=== PATIENT | male | born 1965 | race Caucasian/White ===

== ENCOUNTER 2019-12-13 09:14 | Outpatient (CLI) | payer OTHER ==
[2019-12-13] MEDS ORDERED: Iopamidol 370 76% 100 ML VIAL ONE (09:37)
--- NOTE | 2019-12-13 10:01 | CT ---
Exam: Chest CT with contrast HISTORY: Right renal mass. Comparison none FINDINGS: Mediastinum: No mass, lymphadenopathy or hematoma. HEART: Normal heart size. No significant pericardial fluid. Aorta: Normal caliber. No periaortic fat stranding Upper abdomen: Redemonstration of a right renal mass. Visualized IVC appears to be patent. Hypoattenu ation liver due to hepatic steatosis. Trachea and central bronchi are patent Pleural spaces: No effusion Pneumothorax: None Right lung: Noncalcified solid nodule in the right upper lobe measures 0.4 cm. No additional nodules in the right lung. Left lung: No suspicious masses, consolidation or nodules Osseous structures: No lytic or blastic lesions IMPRESSION: 1. Redemonstration of a right renal mass, incompletely evaluated 2. Solitary solid nodule in the right upper lobe measuring 0.4 cm. Lesion is too small to further salima racterize. A noncalcified granuloma is favored. Metastatic lesion cannot be entirely excluded. Comparison with prior CT if available would be beneficial.
--- NOTE | 2019-12-13 14:13 | NM ---
Exam: Nuclear medicine whole body bone scan HISTORY: Right kidney neoplasm of uncertain etiology and behavior COMPARISON: None TECHNIQUE: Patient was administered 31.70 mCi of technetium 99m MDP intravenously. After appropriate delay, whole body imaging was performed. FINDINGS: Physiologic distribution of radiotracer. Uptake in bilateral shoulders felt to be due to de generative change. There is also evidence of degenerative change in both knees. Initial images demonstrate contamination projecting over the perineum. Subsequent images demonstrate resolution of this examination. No scintigraphic evidence of osseous metastases in the appendicular or axial skeleton. There is focal uptake in the anterior right calvarium, very subtle. IMPRESSION: 1. Subtle uptake in the right frontal calvarium. Correlate with head CT.
== END 2019-12-13 09:15 | disposition home or self-care (01) ==
LOC: CT 09:14
PROVIDERS: ATTEND Urology
DX: D41.01 Neoplasm of uncertain behavior of right kidney (principal); R91.1 Solitary pulmonary nodule; N28.89 Other specified disorders of kidney and ureter
CPT/HCPCS: 71260; 78306; A9503

== ENCOUNTER 2019-12-17 06:10 | Outpatient (CLI) | payer OTHER ==
--- NOTE | 2019-12-20 14:26 | EKG ---
Test Reason : Blood Pressure : / mmHG Vent. Rate : 071 BPM Atrial Rate : 071 BPM P-R Int : 132 ms QRS Dur : 092 ms QT Int : 384 ms P-R-T Axes : 009 016 028 degrees QTc Int : 417 ms Normal sinus rhythm Normal ECG No previous ECGs available Confirmed by OBINNA JAVED (2) on 12/20/2019 2:26:14 PM Referred By: ABDULLAHI Confirmed By:OBINNA JAVED
== END 2019-12-17 06:11 | disposition home or self-care (01) ==
LOC: LABBT 06:10
PROVIDERS: ATTEND Urology
DX: Z01.810 Encounter for preprocedural cardiovascular examination (principal); N28.89 Other specified disorders of kidney and ureter
CPT/HCPCS: 93005; 93010

== ENCOUNTER 2019-12-17 09:30 | Inpatient (IN) | payer OTHER ==
[2019-12-14 13:07] VITALS: BMI 32.5
[2019-12-18 12:16] LABS: SARS-CoV-2 MS2 Positive; SARS-CoV-2 N Gene Negative; SARS-CoV-2 S Gene Negative; SARS-CoV-2 orf1ab Negative
[2019-12-21] MEDS ORDERED: Fentanyl 100 MCG/2 ML VIAL ONE ×3 (06:18→10:23)
[2019-12-21] MEDS ORDERED: Midazolam HCl 2 mg/2 ml Vial ONE ×2 (06:18→06:30)
[2019-12-21] MEDS ORDERED: HYDROmorphone 2 MG/ML VIAL ONE (06:30)
[2019-12-21] MEDS ORDERED: Scopolamine 1.5 mg/72 hour Patch ONE (06:58)
[2019-12-21] MEDS ORDERED: Famotidine/PF 20 mg/2ml Vial ONE (07:34)
[2019-12-21] MEDS ORDERED: Ropivacaine 0.2% HCl/PF 20 ML ONE (07:36)
[2019-12-21] MEDS ORDERED: Ondansetron PF 4 MG/2 ML Vial IVP PRN (07:45)
[2019-12-21] MEDS ORDERED: Zolpidem Tartrate 5 MG TAB PO PRN ×2 (07:45→11:53)
[2019-12-21] MEDS ORDERED: Promethazine HCl 25 MG/ML VIAL IM PRN (07:45)
[2019-12-21] MEDS ORDERED: diphenhydrAMINE 50 MG/ML VIAL IVP PRN (07:45)
[2019-12-21] MEDS ORDERED: Bupivacaine 0.25% 10 ML VIAL EPIDURAL PRN (07:45)
[2019-12-21] MEDS ORDERED: Promethazine HCl 25 MG SUPP PR PRN (07:45)
[2019-12-21] MEDS ORDERED: Hydrocerin (Eucerin) Cream 120 gm Jar TOP PRN (07:45)
[2019-12-21] MEDS ORDERED: diphenhydrAMINE 25 MG CAP PO PRN (07:45)
[2019-12-21] MEDS ORDERED: Naloxone HCl 0.4 mg/ml Vial IVP PRN (07:45)
[2019-12-21] MEDS ORDERED: diphenhydrAMINE 50 MG/ML VIAL IM PRN (07:45)
[2019-12-21] MEDS ORDERED: SUGAMMADEX SODIUM 200 MG/2 ML VIAL ONE (09:01)
--- NOTE | 2019-12-21 09:49 | OP ---
DATE OF PROCEDURE: 12/21/2019 SUPPLY CHAIN ASSISTANT SURGEON: Noemy. PREOPERATIVE DIAGNOSIS: Right renal mass. POSTOPERATIVE DIAGNOSIS: Right renal mass. PROCEDURE PERFORMED: Right radical nephrectomy. ANESTHESIA: General, epidural. BLOOD LOSS: 150. SPECIMEN: Right kidney. COMPLICATIONS: None. DESCRIPTION OF PROCEDURE: After informed consent, the patient was taken to the operating room, transferred to the table under his own power. Anesthesia was established. A time-out was performed, showing the correct patient, site, and procedure. Preoperative images were reviewed. Preoperative antibiotics were administered. He was prepped and draped in the supine position with the bed slightly flexed. I began by making a right anterior subcostal incision about 2 fingerbreadths below the bottom rib. This was carried from midline out laterally. Incision was first made with a 10 blade and then carried down to fascia with electrocautery. Peritoneum was carefully entered and opened for width of the incision. The colon was deflected medially, and then the duodenum was carefully Kocherized using Metzenbaum scissors. I was able to dissect the lower pole of the kidney and doubly ligated the gonadal and ureter and transected between. The posterior plane was bluntly developed. I then carried the dissection bluntly up to the renal hilum. The IVC was dissected anteriorly and carried up to the renal vein. I was unable to pass my fingers around both the renal vein and artery. These were controlled with a vascular staple load. The superior medial attachments through the adrenal gland were then taken down with another vascular load. Electrocautery was used to transect the Gerota's attachments of the superior pole until the kidney was freed. The kidney was then delivered off the operative field. The renal fossa was then irrigated, noting no active bleeding. Upon further inspection, there was slight oozing from the adrenal bed, which was packed with Gel-Foam. The Bookwalter was then taken down. The colon was replaced, and omentum was placed over top. The incision was closed in 2 layers with 0 PDS suture. Subcutaneous tissues were then copiously irrigated, and skin was closed with ruba before being dressed with a bordered gauze dressing. Final counts were correct. The patient was then awoken from anesthesia, transferred back to his hospital bed and taken to PACU in stable condition, where he will be admitted to the floor. Job ID: [id number]
[2019-12-21] MEDS ORDERED: D5 1/2 NS w/20 mEq KCL 1,000 ML ONE (10:21)
[2019-12-21] MEDS ORDERED: hydrALAZINE 20 MG/ML VIAL SLOW IVP PRN (11:53)
[2019-12-21] MEDS ORDERED: Ondansetron PF 4 MG/2 ML Vial ONE (12:26)
[2019-12-21] MEDS ORDERED: Rocuronium Bromide 10 MG/ML (10ML VIAL) ONE (12:26)
[2019-12-21] MEDS ORDERED: PROPOFOL 200 MG/20 ML VIAL ONE (12:26)
[2019-12-21] MEDS ORDERED: Lidocaine 1% PF 5 ML VIAL ONE (12:26)
[2019-12-21] MEDS ORDERED: Lidocaine 1.5% w/Epi 1:200K 30 ML VIAL (Epid Use) ONE (12:26)
[2019-12-21] MEDS ORDERED: Succinylcholine Chloride 20 MG/ML 10 ml SYRINGE FS ONE (12:26)
[2019-12-21] MEDS: D5 1/2 NS w/20 mEq KCL 1,000 ML IV SCH ×2 (19:56→20:16)
[2019-12-21] MEDS: Docusate 100 MG CAP PO SCH (20:15)
[2019-12-22] MEDS: fentaNYL Citrate/PF 500 MCG, Bupivacaine 10 ML in Sodium Chloride 0.9% 80 ML EPIDURAL SCH ×2 (00:09→13:02)
[2019-12-22] MEDS: D5 1/2 NS w/20 mEq KCL 1,000 ML IV SCH ×2 (05:20→15:21)
[2019-12-22 06:15] LABS: #Eosinphils 0.1 thou/uL (0.0-0.7); #Lymphocytes 1.5 thou/uL (1.20-3.40); #Monocytes 0.7 thou/uL (0.11-0.59); #Neutrophils 6.5 thou/uL (1.40-6.50); %Basophils 0.2 % (0.0-1.0); %Eosinophils 1.1 % (0.0-10.0); %Lymphocytes 16.6 % (21.0-51.0); %Monocytes 7.9 % (0.0-10.0); %Neutrophils 74.2 % (42.0-75.0); Hemoglobin 11.2 g/dL (14.0-18.0); Mean Corpuscular HGB CONC 33.1 g/dL (32.0-36.0); Mean Corpuscular Hemoglobin 29.8 pg (27.0-31.0); Mean Platelet Volume 7.6 fL (7.4-10.4); Platelet Count 280 thou/uL (130-400); RBC Distribution Width 12.9 % (11.5-14.5); Red Blood Cell (RBC) Count 3.76 mill/uL (4.70-6.10); White Blood Cell (WBC) Count 8.8 thou/uL (4.8-10.8)
[2019-12-22] MEDS ORDERED: traMADol HCl 50 MG TAB PO PRN ×2 (08:25→08:26)
[2019-12-22] MEDS ORDERED: Acetaminophen 500 MG TAB PO SCH (08:30)
[2019-12-22] MEDS: Docusate 100 MG CAP PO SCH ×2 (08:51→19:54)
[2019-12-22] MEDS ORDERED: Enoxaparin Sodium 40 MG/0.4 ML SYRINGE SC SCH (09:00)
[2019-12-22 09:20] LABS: Anion Gap 11 mmol/L (10-20); BUN (Urea Nitrogen) 12 mg/dL (8.4-25.7); Calc. Creatinine Clearance 60 mL/min (70-130); Calcium 8.7 mg/dL (7.8-10.44); Carbon Dioxide 25 mmol/L (22-29); Chloride 102 mmol/L (98-107); Estimated GFR-MDRD 43; Glucose 96 mg/dL (70-105); Potassium 4.3 mmol/L (3.5-5.1); Sodium 134 mmol/L (136-145)
--- NOTE | 2019-12-22 09:37 | PRG ---
DATE OF SERVICE: 12/22/2019 SUBJECTIVE: No issues overnight. Pain well controlled with epidural. He denies nausea, fevers, chest pain, or difficulty breathing. OBJECTIVE: VITAL SIGNS: Temperature this morning just over 100. Otherwise, vitals stable. Good urine output. GENERAL: No acute distress, conversant. LUNGS: Unlabored breathing. Symmetric chest expansion. HEART: Regular rate and rhythm. ABDOMEN: Soft, appropriately tender, and nondistended. Dressing in place, not soiled. SKIN: Warm and dry. No peripheral edema. GENITOURINARY: Hardin catheter draining clear urine. LABORATORY DATA: Hemoglobin 11. BMP still pending. ASSESSMENT AND PLAN: Postoperative day #1, right radical nephrectomy for 10 cm right renal mass. Routine postop care: Out of bed to chair and ambulate; continue diet; continue epidural until tomorrow morning; deep venous thrombosis prophylaxis this morning, which will be held tomorrow before epidural removal; gastrointestinal prophylaxis; SCDs; and incentive spirometry. Discharge anticipated tomorrow or Friday depending on clinical course. Job ID: [id number]
[2019-12-22] MEDS: Acetaminophen 500 MG TAB PO PRN (21:00)
[2019-12-23] MEDS: fentaNYL Citrate/PF 500 MCG, Bupivacaine 10 ML in Sodium Chloride 0.9% 80 ML EPIDURAL SCH (01:15)
[2019-12-23 05:49] LABS: #Eosinphils 0.2 thou/uL (0.0-0.7); #Lymphocytes 1.4 thou/uL (1.20-3.40); #Monocytes 0.8 thou/uL (0.11-0.59); #Neutrophils 7.7 thou/uL (1.40-6.50); %Basophils 0.3 % (0.0-1.0); %Eosinophils 1.8 % (0.0-10.0); %Lymphocytes 13.7 % (21.0-51.0); %Monocytes 7.7 % (0.0-10.0); %Neutrophils 76.6 % (42.0-75.0); Hemoglobin 12.1 g/dL (14.0-18.0); Mean Corpuscular HGB CONC 32.1 g/dL (32.0-36.0); Mean Corpuscular Hemoglobin 28.9 pg (27.0-31.0); Mean Platelet Volume 7.6 fL (7.4-10.4); Platelet Count 288 thou/uL (130-400); RBC Distribution Width 12.7 % (11.5-14.5); Red Blood Cell (RBC) Count 4.18 mill/uL (4.70-6.10)
[2019-12-23 06:03] LABS: Anion Gap 14 mmol/L (10-20); BUN (Urea Nitrogen) 14 mg/dL (8.4-25.7); Calc. Creatinine Clearance 64 mL/min (70-130); Calcium 9.3 mg/dL (7.8-10.44); Carbon Dioxide 25 mmol/L (22-29); Chloride 95 mmol/L (98-107); Estimated GFR-MDRD 46; Glucose 97 mg/dL (70-105); Potassium 3.8 mmol/L (3.5-5.1); Sodium 130 mmol/L (136-145)
[2019-12-23] MEDS: Docusate 100 MG CAP PO SCH ×2 (08:55→20:01)
[2019-12-23] MEDS ORDERED: HYDROcodone/Acetaminophen 10/325 mg Tablet PO PRN ×2 (11:27→11:28)
[2019-12-23] MEDS ORDERED: Fentanyl 100 MCG/2 ML VIAL SLOW IVP PRN (11:28)
--- NOTE | 2019-12-23 17:23 | PQF ---
Q31 2018 [facility] Updated: CLINICAL DOCUMENTATION CLARIFICATION FORM: Patient Name: DANIELE SANTO Date of : 1965 Account: [id number] Admit Date: 12/21/2019 Facility: [facility] [place] [facility] Dr. MORRIS Date / Time: 12/23/2019 6937 Please exercise your independent, professional judgment in responding to the clarification form. Clinical indicators are provided on the bottom of this form for your review. Please check appropriate box(es): [ x] Hyponatremia please specify etiology, if known [ ] Hyponatremia due to SIADH (Syndrome of Inappropriate Secretion of Antidiuretic Hormone) [ ] Other diagnosis [ ] Unable to determine In addition, please specify: Present on Admission (POA): [ ] Yes [ x ] No [ ] Unable to determine For continuity of documentation, please document condition throughout progress notes and discharge summary. Thank You. To be completed by CDI/Coding staff for physician review: CLINICAL INDICATORS - SIGNS / SYMPTOMS / LABS / RESULTS AND LOCATION IN EMR (12/21) SODIUM 134 (12/22) SODIUM 130 RISK FACTORS / RESULTS AND LOCATION IN EMR (12/20 )H&P ([facility]) RIGHT RENAL MASS, RECENT SX, RIGHT NEPHRECTOMY TREATMENTS / RESULTS AND LOCATION IN EMR (12/20-12/21) IV FLUIDS (12/20-PRESENT) SERIAL LABS Thank you! Vilma [facility] Signature: Vilma Stinson Phone #: [phone] Date: 12/23/2019 This is a permanent part of the Medical Record [facility]
[2019-12-23] MEDS: Acetaminophen 500 MG TAB PO PRN (18:24)
[2019-12-23] MEDS ORDERED: Enoxaparin Sodium 40 MG/0.4 ML SYRINGE SC SCH (21:00)
[2019-12-24 03:52] VITALS: TEMP 98.3
[2019-12-24 05:45] LABS: #Eosinphils 0.3 thou/uL (0.0-0.7); #Lymphocytes 1.3 thou/uL (1.20-3.40); #Monocytes 0.6 thou/uL (0.11-0.59); #Neutrophils 5.9 thou/uL (1.40-6.50); %Basophils 0.2 % (0.0-1.0); %Eosinophils 3.7 % (0.0-10.0); %Lymphocytes 15.7 % (21.0-51.0); %Monocytes 7.4 % (0.0-10.0); Hemoglobin 12.6 g/dL (14.0-18.0); Mean Corpuscular HGB CONC 31.2 g/dL (32.0-36.0); Mean Corpuscular Hemoglobin 27.9 pg (27.0-31.0); Mean Corpuscular Volume 89.4 fL (78.0-98.0); Mean Platelet Volume 7.8 fL (7.4-10.4); Platelet Count 322 thou/uL (130-400); RBC Distribution Width 12.6 % (11.5-14.5); Red Blood Cell (RBC) Count 4.53 mill/uL (4.70-6.10); White Blood Cell (WBC) Count 8.1 thou/uL (4.8-10.8)
[2019-12-24 06:02] LABS: Anion Gap 11 mmol/L (10-20); BUN (Urea Nitrogen) 14 mg/dL (8.4-25.7); Calc. Creatinine Clearance 68 mL/min (70-130); Calcium 9.6 mg/dL (7.8-10.44); Carbon Dioxide 26 mmol/L (22-29); Chloride 100 mmol/L (98-107); Estimated GFR-MDRD 49; Glucose 99 mg/dL (70-105); Potassium 4.3 mmol/L (3.5-5.1); Sodium 133 mmol/L (136-145)
[2019-12-24 07:51] VITALS: BP 131/82
[2019-12-24] MEDS: Docusate 100 MG CAP PO SCH (08:27)
[2019-12-24] MEDS: Acetaminophen 500 MG TAB PO PRN (08:30)
--- NOTE | 2019-12-24 11:00 | PRG ---
DATE OF SERVICE: 12/23/2019 SUBJECTIVE: No issues overnight. Pain well controlled. Tolerating oral intake. Has been ambulating and voiding without the catheter. OBJECTIVE: VITAL SIGNS: Afebrile, vitals stable. Good urine output. GENERAL: No acute distress, conversant. RESPIRATORY: Unlabored breathing. HEART: Regular rate and rhythm. ABDOMEN: Soft, appropriately tender, no appreciable distention. SKIN: Warm and dry. EXTREMITIES: No peripheral edema. LABORATORY DATA: Reviewed, showing hemoglobin of 12.1, white count of 10, and creatinine of 1.58. ASSESSMENT AND PLAN: Postoperative day 2 right radical nephrectomy. We will have the epidural removed with transition to oral medications. Continue regular diet. DVT and GI prophylaxis. Discharge anticipated either later today or tomorrow. Job ID: [id number]
--- NOTE | 2019-12-24 15:23 | DIS ---
DATE OF ADMISSION: 12/21/2019 DATE OF DISCHARGE: 12/24/2019 CHIEF COMPLAINT: Right renal mass. HOSPITAL COURSE: The patient underwent an open right anterior subcostal radical nephrectomy on December 20. There were no surgical complications. He was managed with an epidural for the next 2 days with Hardin catheter removed on postop day 1. The epidural was stopped on postop day 2 with minimal discomfort. On postop day 3, he was ambulating, tolerating oral intake, and requiring no pain medication. He was deemed stable for discharge home at that point. DISCHARGE DIAGNOSES: 1. Clear cell carcinoma, right kidney. 2. Hyponatremia. DISCHARGE MEDICATIONS: 1. Dubois. 2. Docusate. DISCHARGE PLAN: Follow up on January 02 for staple removal. Job ID: [id number]
== END 2019-12-24 10:46 | disposition home or self-care (01) | DRG 657 ==
LOC: SURG A 12-21 06:02
PROVIDERS: ADMIT Urology; ATTEND Urology
PROC: 0TT00ZZ Resection of Right Kidney, Open Approach (ICD-10-PCS; principal; 2019-12-21)
DX: C64.1 Malignant neoplasm of right kidney, except renal pelvis (principal); E87.1 Hypo-osmolality and hyponatremia; Z11.59 Encounter for screening for other viral diseases; J30.2 Other seasonal allergic rhinitis; G47.30 Sleep apnea, unspecified; Z99.89 Dependence on other enabling machines and devices
CPT/HCPCS: 36415; 80048; 85025; 86850; 86900; 86901; 87635; 88307; J0690; J1170; J1650; J2001; J2250; J2405; J2704; J2795; J3010; J3480; J3490; S0028; U0003

== ENCOUNTER 2020-11-15 09:26 | Outpatient (CLI) | payer OTHER ==
[~2020-11-15 09:26] MED LIST: Magnevist 469MG/ML 20 ML VIAL ONE
== END 2020-11-15 09:27 | disposition home or self-care (01) ==
LOC: NM 09:26
PROVIDERS: ATTEND Internal Medicine Hematology & Oncology
DX: C64.1 Malignant neoplasm of right kidney, except renal pelvis (principal); C78.1 Secondary malignant neoplasm of mediastinum; M25.50 Pain in unspecified joint; H93.19 Tinnitus, unspecified ear
CPT/HCPCS: 70553; 78306; A9503; A9579

== ENCOUNTER 2022-04-10 09:26 | Outpatient (CLI) | payer BC | END 2022-04-10 09:27 | disposition home or self-care (01) | LOC: NM 09:26 | PROVIDERS: ATTEND Internal Medicine Hematology & Oncology | DX: C78.1 Secondary malignant neoplasm of mediastinum (principal); C64.1 Malignant neoplasm of right kidney, except renal pelvis | CPT/HCPCS: 78306; A9503 ==

== ENCOUNTER 2022-07-31 11:25 | Outpatient (CLI) | payer BC | END 2022-07-31 11:26 | disposition home or self-care (01) | LOC: SCSMRI 11:25 | PROVIDERS: ATTEND Radiology Radiation Oncology | DX: C64.9 Malignant neoplasm of unspecified kidney, except renal pelvis (principal); C79.31 Secondary malignant neoplasm of brain; M47.816 Spondylosis without myelopathy or radiculopathy, lumbar region; M51.26 Other intervertebral disc displacement, lumbar region; M43.17 Spondylolisthesis, lumbosacral region; I61.9 Nontraumatic intracerebral hemorrhage, unspecified | CPT/HCPCS: 70553; 72158; 82565 ==

== ENCOUNTER 2023-01-13 10:30 | Outpatient (CLI) | payer BC | END 2023-01-13 10:31 | disposition home or self-care (01) | LOC: BICMRI 10:30 | PROVIDERS: ATTEND Radiology Radiation Oncology | DX: C79.31 Secondary malignant neoplasm of brain (principal); C79.49 Secondary malignant neoplasm of other parts of nervous system; M47.816 Spondylosis without myelopathy or radiculopathy, lumbar region | CPT/HCPCS: 72158; A9579 ==

== ENCOUNTER 2023-03-31 09:26 | Outpatient (CLI) | payer BC | END 2023-03-31 09:27 | disposition home or self-care (01) | LOC: SCSMRI 09:26 | PROVIDERS: ATTEND Radiology Radiation Oncology | DX: C79.31 Secondary malignant neoplasm of brain (principal); C79.49 Secondary malignant neoplasm of other parts of nervous system; M51.36 Other intervertebral disc degeneration, lumbar region; M51.26 Other intervertebral disc displacement, lumbar region | CPT/HCPCS: 70553; 72158 ==

== ENCOUNTER 2023-07-07 09:59 | Outpatient (CLI) | payer BC ==
[2023-07-07] MEDS ORDERED: Magnevist 469MG/ML 20 ML VIAL ONE ×2 (14:03)
== END 2023-07-07 10:00 | disposition home or self-care (01) ==
LOC: MRI 09:59
PROVIDERS: ATTEND Radiology Radiation Oncology
DX: C64.9 Malignant neoplasm of unspecified kidney, except renal pelvis (principal); C41.2 Malignant neoplasm of vertebral column; M47.816 Spondylosis without myelopathy or radiculopathy, lumbar region; M51.36 Other intervertebral disc degeneration, lumbar region; M51.37 Other intervertebral disc degeneration, lumbosacral region; M48.061 Spinal stenosis, lumbar region without neurogenic claudication; M48.07 Spinal stenosis, lumbosacral region; M51.16 Intervertebral disc disorders with radiculopathy, lumbar region; N28.9 Disorder of kidney and ureter, unspecified; G93.89 Other specified disorders of brain
CPT/HCPCS: 70553; 72158; 82565

== ENCOUNTER 2023-11-08 10:50 | Emergency (ER) | payer BC ==
[2023-11-08 11:19] LABS: #Basophils 0.03 10x3/uL (0.0-0.2); %Basophils 0.5 % (0.0-1.0); %Eosinophils 2.4 % (0.0-10.0); %Lymphocytes 21.1 % (21.0-51.0); %Monocytes 11.6 % (0.0-10.0); %Neutrophils 64.1 % (42.0-75.0); Hematocrit 40.2 % (42.0-52.0); Hemoglobin 13.5 g/dL (14.0-18.0); Mean Corpuscular HGB CONC 33.6 g/dL (32.0-36.0); Mean Corpuscular Hemoglobin 31.6 pg (27.0-31.0); Mean Corpuscular Volume 94.1 fL (78.0-98.0); Mean Platelet Volume 8.8 fL (7.4-10.4); Platelet Count 236 10x3/uL (130-400); RBC Distribution Width 13.9 % (11.5-14.5); Red Blood Cell (RBC) Count 4.27 mill/uL (4.70-6.10)
[2023-11-08 11:22] LABS: Bacteria/HPF None Seen HPF (None Seen); Bilirubin Negative (Negative); Blood, Urine 3+ (Negative); CAUTI Indications for Culture Dysuria,urgency,freq; Clarity Clear (Clear); Glucose, Urine (Dipstick) Normal (Negative); Ketone, Urine Negative (Negative); Leukocyte Negative Leu/uL (Negative); Nitrite Negative (Negative); Protein, Urine (Dipstick) Negative (Neg-Trace); Specific Gravity, Urine 1.007 (1.002-1.036); Squamous Epithelial None Seen HPF (0-3); Urobilinogen Normal mg/dL (Less than 2); WBC/HPF 0-3 HPF (0-3)
[2023-11-08 11:24] LABS: Urine Culture Reflex No No
[2023-11-08 11:33] LABS: ALT (SGPT) 47 U/L (8-55); AST (SGOT) 34 U/L (5-34); Alkaline Phosphatase 111 U/L (40-110); Anion Gap 14 mmol/L (10-20); BUN (Urea Nitrogen) 15 mg/dL (8.4-25.7); Bilirubin, Total 0.5 mg/dL (0.2-1.2); Calc. Creatinine Clearance 0 mL/min (70-130); Calcium 9.1 mg/dL (7.8-10.44); Carbon Dioxide 19 mmol/L (22-29); Chloride 106 mmol/L (98-107); Estimated GFR 81; Globulin 3.7 g/dL (2.4-3.5); Glucose 109 mg/dL (70-105); Potassium 4.2 mmol/L (3.5-5.1); Protein, Total 7.7 g/dL (6.0-8.3); Sodium 135 mmol/L (136-145)
[2023-11-08] MEDS ORDERED: Acetaminophen 500 MG TAB ONE (11:40)
== END 2023-11-08 13:00 | disposition home or self-care (01) ==
LOC: ERS 10:50
DX: R31.9 Hematuria, unspecified (principal); R59.9 Enlarged lymph nodes, unspecified; N32.89 Other specified disorders of bladder; C74.90 Malignant neoplasm of unspecified part of unspecified adrenal gland; C64.9 Malignant neoplasm of unspecified kidney, except renal pelvis
CPT/HCPCS: 36415; 74176; 80053; 81001; 82550; 83690; 85025; 87086

== ENCOUNTER 2023-11-26 19:22 | Inpatient (IN) | payer BC ==
[~2023-11-26 19:22] MED LIST changes: +Iopamidol-370 76% 500 ML MDV (1 ML CHARGE) ONE; -Magnevist 469MG/ML 20 ML VIAL ONE
[2023-11-26 20:40] LABS: #Basophils 0.04 10x3/uL (0.0-0.2); %Basophils 0.5 % (0.0-1.0); %Eosinophils 2.6 % (0.0-10.0); %Lymphocytes 13.1 % (21.0-51.0); %Monocytes 9.3 % (0.0-10.0); %Neutrophils 73.8 % (42.0-75.0); Hematocrit 33.9 % (42.0-52.0); Hemoglobin 11.3 g/dL (14.0-18.0); Mean Corpuscular HGB CONC 33.3 g/dL (32.0-36.0); Mean Corpuscular Hemoglobin 32.1 pg (27.0-31.0); Mean Corpuscular Volume 96.3 fL (78.0-98.0); Mean Platelet Volume 9.6 fL (7.4-10.4); Platelet Count 309 10x3/uL (130-400); RBC Distribution Width 14.7 % (11.5-14.5); Red Blood Cell (RBC) Count 3.52 mill/uL (4.70-6.10)
[2023-11-26 20:55] LABS: ALT (SGPT) 42 U/L (8-55); AST (SGOT) 36 U/L (5-34); Alkaline Phosphatase 143 U/L (40-110); Anion Gap 17 mmol/L (10-20); BUN (Urea Nitrogen) 13 mg/dL (8.4-25.7); Bilirubin, Total 0.3 mg/dL (0.2-1.2); Calc. Creatinine Clearance 0 mL/min (70-130); Calcium 9.7 mg/dL (7.8-10.44); Carbon Dioxide 19 mmol/L (22-29); Chloride 103 mmol/L (98-107); Estimated GFR 70; Globulin 3.6 g/dL (2.4-3.5); Glucose 120 mg/dL (70-105); Potassium 3.9 mmol/L (3.5-5.1); Protein, Total 7.6 g/dL (6.0-8.3); Sodium 135 mmol/L (136-145)
[2023-11-26 20:59] LABS: INR-International Normal Ratio 1.2; Prothrombin Time 14.9 sec (12.0-14.7)
[2023-11-26 21:00] LABS: PTT 41.6 sec (22.9-36.1)
[2023-11-27] MEDS ORDERED: Heparin 25,000 units/D5W 500 ML ONE (01:11)
[2023-11-27] MEDS ORDERED: Ondansetron ODT 4 MG TAB SL PRN (02:00)
[2023-11-27] MEDS ORDERED: Ondansetron PF 4 MG/2 ML Vial IVP PRN (02:00)
[2023-11-27] MEDS ORDERED: Acetaminophen 325 MG TAB PO PRN (02:00)
[2023-11-27 02:06] VITALS: BMI 32.4
[2023-11-27] MEDS ORDERED: Acetaminophen 650 MG Suppository PR PRN (03:40)
[2023-11-27] MEDS ORDERED: Heparin 10,000 UNITS/ 10 ML VIAL SLOW IVP SCH (04:00)
[2023-11-27] MEDS ORDERED: Heparin 25,000 units/D5W 500 ML IVPB SCH (04:00)
[2023-11-27 07:22] LABS: #Basophils Less than 0.03 10x3/uL (0.0-0.2); %Basophils 0.4 % (0.0-1.0); %Eosinophils 2.5 % (0.0-10.0); %Lymphocytes 18.4 % (21.0-51.0); %Monocytes 10.1 % (0.0-10.0); %Neutrophils 68.2 % (42.0-75.0); Hematocrit 40.3 % (42.0-52.0); Hemoglobin 13.2 g/dL (14.0-18.0); Mean Corpuscular HGB CONC 32.8 g/dL (32.0-36.0); Mean Corpuscular Hemoglobin 31.7 pg (27.0-31.0); Mean Corpuscular Volume 96.6 fL (78.0-98.0); Mean Platelet Volume 9.4 fL (7.4-10.4); Platelet Count 236 10x3/uL (130-400); RBC Distribution Width 14.9 % (11.5-14.5); Red Blood Cell (RBC) Count 4.17 mill/uL (4.70-6.10)
[2023-11-27 07:30] LABS: Anion Gap 14 mmol/L (10-20); BUN (Urea Nitrogen) 11 mg/dL (8.4-25.7); Calc. Creatinine Clearance 86 mL/min (70-130); Calcium 9.6 mg/dL (7.8-10.44); Carbon Dioxide 22 mmol/L (22-29); Chloride 105 mmol/L (98-107); Estimated GFR 79; Glucose 106 mg/dL (70-105); Potassium 4.5 mmol/L (3.5-5.1); Sodium 136 mmol/L (136-145)
[2023-11-27 07:42] LABS: PTT 121.3 sec (22.9-36.1)
[2023-11-27] MEDS: Pantoprazole 40 MG VIAL IVP SCH (08:29)
[2023-11-27] MEDS: Enoxaparin 60 MG (0.6 mL) SYRINGE SC SCH (10:44)
[2023-11-27] MEDS: Enoxaparin 80 MG (0.8 mL) SYRINGE SC SCH (21:27)
[2023-11-28 06:14] LABS: #Basophils 0.03 10x3/uL (0.0-0.2); %Basophils 0.5 % (0.0-1.0); %Eosinophils 2.6 % (0.0-10.0); %Lymphocytes 18.4 % (21.0-51.0); Hematocrit 31.6 % (42.0-52.0); Hemoglobin 10.4 g/dL (14.0-18.0); Mean Corpuscular HGB CONC 32.9 g/dL (32.0-36.0); Mean Corpuscular Hemoglobin 32.2 pg (27.0-31.0); Mean Corpuscular Volume 97.8 fL (78.0-98.0); Mean Platelet Volume 9.1 fL (7.4-10.4); Platelet Count 292 10x3/uL (130-400); RBC Distribution Width 14.7 % (11.5-14.5); Red Blood Cell (RBC) Count 3.23 mill/uL (4.70-6.10)
[2023-11-28 06:27] LABS: Anion Gap 14 mmol/L (10-20); BUN (Urea Nitrogen) 13 mg/dL (8.4-25.7); Calc. Creatinine Clearance 69 mL/min (70-130); Calcium 9.4 mg/dL (7.8-10.44); Carbon Dioxide 22 mmol/L (22-29); Chloride 106 mmol/L (98-107); Estimated GFR 62; Glucose 105 mg/dL (70-105); Potassium 4.4 mmol/L (3.5-5.1); Sodium 138 mmol/L (136-145)
[2023-11-29 05:40] LABS: ALT (SGPT) 23 U/L (8-55); AST (SGOT) 26 U/L (5-34); Albumin 3.6 g/dL (3.5-5.0); Alkaline Phosphatase 110 U/L (40-110); Anion Gap 13 mmol/L (10-20); BUN (Urea Nitrogen) 13 mg/dL (8.4-25.7); Bilirubin, Total 0.4 mg/dL (0.2-1.2); Calc. Creatinine Clearance 73 mL/min (70-130); Calcium 9.7 mg/dL (7.8-10.44); Carbon Dioxide 23 mmol/L (22-29); Chloride 106 mmol/L (98-107); Estimated GFR 66; Globulin 3.4 g/dL (2.4-3.5); Glucose 105 mg/dL (70-105); Magnesium 2.2 mg/dL (1.6-2.6); Potassium 4.3 mmol/L (3.5-5.1); Sodium 138 mmol/L (136-145)
[2023-11-29 05:47] LABS: #Basophils 0.04 10x3/uL (0.0-0.2); %Basophils 0.6 % (0.0-1.0); %Eosinophils 3.2 % (0.0-10.0); %Lymphocytes 17.6 % (21.0-51.0); %Monocytes 10.4 % (0.0-10.0); %Neutrophils 67.8 % (42.0-75.0); Hematocrit 32.2 % (42.0-52.0); Hemoglobin 10.4 g/dL (14.0-18.0); Mean Corpuscular HGB CONC 32.3 g/dL (32.0-36.0); Mean Corpuscular Volume 95.8 fL (78.0-98.0); Mean Platelet Volume 9.5 fL (7.4-10.4); Platelet Count 305 10x3/uL (130-400); RBC Distribution Width 14.6 % (11.5-14.5); Red Blood Cell (RBC) Count 3.36 mill/uL (4.70-6.10)
[2023-11-29] MEDS: Apixaban 5 MG TAB PO SCH (09:06)
[2023-11-29] MEDS ORDERED: Acetaminophen 325 MG TAB PO PRN (22:16)
[2023-11-29] MEDS: Acetaminophen/Codeine 30-300mg Tablet PO PRN (22:21)
[2023-11-30 05:07] LABS: #Basophils Less than 0.03 10x3/uL (0.0-0.2); %Basophils 0.3 % (0.0-1.0); %Eosinophils 3.5 % (0.0-10.0); %Monocytes 10.3 % (0.0-10.0); %Neutrophils 70.6 % (42.0-75.0); Hematocrit 32.7 % (42.0-52.0); Hemoglobin 10.7 g/dL (14.0-18.0); Mean Corpuscular HGB CONC 32.7 g/dL (32.0-36.0); Mean Corpuscular Hemoglobin 31.8 pg (27.0-31.0); Mean Platelet Volume 9.5 fL (7.4-10.4); Platelet Count 295 10x3/uL (130-400); RBC Distribution Width 14.7 % (11.5-14.5); Red Blood Cell (RBC) Count 3.37 mill/uL (4.70-6.10)
[2023-11-30 12:23] VITALS: TEMP 98.2
== END 2023-11-30 15:16 | disposition home or self-care (01) | DRG 176 ==
LOC: ERS 19:22 → IMCU/EMU 11-27 00:33
PROVIDERS: ADMIT Student in an Organized Health Care Education/Training Program; ATTEND Internal Medicine
DX: I26.99 Other pulmonary embolism without acute cor pulmonale (principal); C78.00 Secondary malignant neoplasm of unspecified lung; C64.9 Malignant neoplasm of unspecified kidney, except renal pelvis; N17.9 Acute kidney failure, unspecified; I10 Essential (primary) hypertension; M54.30 Sciatica, unspecified side; D64.9 Anemia, unspecified; R59.1 Generalized enlarged lymph nodes; Z66 Do not resuscitate; Z79.899 Other long term (current) drug therapy
CPT/HCPCS: 36415; 71275; 80048; 80053; 83735; 85025; 85610; 85730; 93005; 96374; C9113; J1644; J1650; Q9967

== ENCOUNTER 2023-12-22 12:31 | Outpatient (CLI) | payer BC | END 2023-12-22 12:32 | disposition home or self-care (01) | LOC: ULT 12:31 | PROVIDERS: ATTEND Internal Medicine Hematology & Oncology | DX: Z51.11 Encounter for antineoplastic chemotherapy (principal); C64.9 Malignant neoplasm of unspecified kidney, except renal pelvis; I42.7 Cardiomyopathy due to drug and external agent; C78.1 Secondary malignant neoplasm of mediastinum; C79.51 Secondary malignant neoplasm of bone; I08.1 Rheumatic disorders of both mitral and tricuspid valves; Z79.899 Other long term (current) drug therapy | CPT/HCPCS: 93306 ==

== ENCOUNTER 2024-04-21 09:04 | Outpatient (CLI) | payer BC ==
[2024-04-21] MEDS ORDERED: GASTROGRAFIN 30 ML BOT ONE (10:25)
[2024-04-21] MEDS ORDERED: Iopamidol 370 76% 100 ML VIAL ONE (10:25)
== END 2024-04-21 09:05 | disposition home or self-care (01) ==
LOC: CT 09:04
PROVIDERS: ATTEND Internal Medicine Hematology & Oncology
DX: C64.1 Malignant neoplasm of right kidney, except renal pelvis (principal); C78.1 Secondary malignant neoplasm of mediastinum; C79.51 Secondary malignant neoplasm of bone; R59.0 Localized enlarged lymph nodes; K76.9 Liver disease, unspecified; E27.8 Other specified disorders of adrenal gland; Z96.89 Presence of other specified functional implants
CPT/HCPCS: 71260; 74177; 78306; A9503

== ENCOUNTER 2024-04-28 02:33 | Inpatient (IN) | payer BC ==
[2024-04-28 03:46] LABS: #Basophils Less than 0.03 10x3/uL (0.0-0.2); %Basophils 0.2 % (0.0-1.0); %Eosinophils 0.6 % (0.0-10.0); %Lymphocytes 9.9 % (21.0-51.0); %Monocytes 6.8 % (0.0-10.0); %Neutrophils 82.1 % (42.0-75.0); Hematocrit 41.6 % (42.0-52.0); Hemoglobin 13.8 g/dL (14.0-18.0); Mean Corpuscular HGB CONC 33.2 g/dL (32.0-36.0); Mean Corpuscular Hemoglobin 29.1 pg (27.0-31.0); Mean Corpuscular Volume 87.6 fL (78.0-98.0); Mean Platelet Volume 9.8 fL (7.4-10.4); Platelet Count 159 10x3/uL (130-400); RBC Distribution Width 15.2 % (11.5-14.5); Red Blood Cell (RBC) Count 4.75 mill/uL (4.70-6.10)
[2024-04-28 04:06] LABS: INR-International Normal Ratio 1.2; Prothrombin Time 15.1 sec (12.0-14.7)
[2024-04-28 04:08] LABS: ALT (SGPT) 31 U/L (8-55); AST (SGOT) 52 U/L (5-34); Albumin 3.5 g/dL (3.4-4.8); Alkaline Phosphatase 180 U/L (40-110); Anion Gap 16 mmol/L (10-20); BUN (Urea Nitrogen) 13 mg/dL (8.4-25.7); Bilirubin, Total 0.5 mg/dL (0.2-1.2); Calc. Creatinine Clearance 0 mL/min (70-130); Calcium 8.7 mg/dL (7.8-10.44); Carbon Dioxide 17 mmol/L (23-31); Chloride 107 mmol/L (98-107); Estimated GFR 67; Globulin 3.8 g/dL (2.4-3.5); Glucose 111 mg/dL (80-115); Lipase 4 U/L (8-78); Potassium 4.5 mmol/L (3.5-5.1); Protein, Total 7.3 g/dL (5.8-8.1); Sodium 135 mmol/L (136-145)
[2024-04-28 04:29] LABS: Troponin I 1.596 ng/mL (< 0.028)
[2024-04-28] MEDS ORDERED: Pantoprazole 40 MG VIAL ONE (04:41)
[2024-04-28] MEDS ORDERED: Acetaminophen 325 MG TAB PO PRN (07:42)
[2024-04-28] MEDS ORDERED: Morphine 2 MG/ML VIAL SLOW IVP PRN (07:48)
[2024-04-28 08:00] LABS: #Basophils Less than 0.03 10x3/uL (0.0-0.2); #Eosinophils Less than 0.03 10x3/uL (0.0-0.7); %Basophils 0.4 % (0.0-1.0); %Eosinophils 0.2 % (0.0-10.0); %Lymphocytes 12.5 % (21.0-51.0); %Neutrophils 80.7 % (42.0-75.0); Hematocrit 40.2 % (42.0-52.0); Hemoglobin 13.4 g/dL (14.0-18.0); Mean Corpuscular HGB CONC 33.3 g/dL (32.0-36.0); Mean Corpuscular Hemoglobin 28.8 pg (27.0-31.0); Mean Corpuscular Volume 86.3 fL (78.0-98.0); Mean Platelet Volume 9.5 fL (7.4-10.4); Platelet Count 154 10x3/uL (130-400); RBC Distribution Width 15.2 % (11.5-14.5); Red Blood Cell (RBC) Count 4.66 mill/uL (4.70-6.10)
[2024-04-28 08:23] LABS: Troponin I Less than 0.010 ng/mL (< 0.028)
[2024-04-28] MEDS: Lactated Ringer's 1,000 ML IV SCH (08:31)
[2024-04-28] MEDS: Pantoprazole 40 MG VIAL IVP SCH (08:36)
[2024-04-28 08:43] VITALS: BMI 26.5
[2024-04-28] MEDS ORDERED: FLU (Fluarix Triv) TS24-25(6MOS UP)/PF 45 MCG/0.5 ML Syringe IM ONE (11:30)
[2024-04-28] MEDS ORDERED: PROPOFOL 40 ML ONE (12:33)
[2024-04-28] MEDS ORDERED: Lidocaine 1% PF 5 ML VIAL ONE (12:34)
[2024-04-28] MEDS ORDERED: PHENYLEPHRINE-NS 100 MCG/ML 10 ML SYRINGE ONE (12:51)
[2024-04-28] MEDS ORDERED: Iopamidol-370 76% 500 ML MDV (1 ML CHARGE) ONE (15:38)
[2024-04-28] MEDS: GoLYTELY 4,000 ml Bottle PO SCH (18:40)
[2024-04-28 18:48] LABS: #Basophils Less than 0.03 10x3/uL (0.0-0.2); %Basophils 0.5 % (0.0-1.0); %Eosinophils 1.8 % (0.0-10.0); %Lymphocytes 22.1 % (21.0-51.0); %Monocytes 9.1 % (0.0-10.0); %Neutrophils 66.2 % (42.0-75.0); Hematocrit 40.1 % (42.0-52.0); Hemoglobin 13.3 g/dL (14.0-18.0); Mean Corpuscular HGB CONC 33.2 g/dL (32.0-36.0); Mean Corpuscular Hemoglobin 29.2 pg (27.0-31.0); Mean Corpuscular Volume 87.9 fL (78.0-98.0); Mean Platelet Volume 9.4 fL (7.4-10.4); Platelet Count 144 10x3/uL (130-400); RBC Distribution Width 15.8 % (11.5-14.5); Red Blood Cell (RBC) Count 4.56 mill/uL (4.70-6.10)
[2024-04-29 04:08] LABS: #Basophils 0.03 10x3/uL (0.0-0.2); %Basophils 0.7 % (0.0-1.0); %Eosinophils 4.4 % (0.0-10.0); %Lymphocytes 22.8 % (21.0-51.0); %Monocytes 8.4 % (0.0-10.0); %Neutrophils 63.5 % (42.0-75.0); Hemoglobin 13.4 g/dL (14.0-18.0); Mean Corpuscular HGB CONC 32.7 g/dL (32.0-36.0); Mean Corpuscular Hemoglobin 29.2 pg (27.0-31.0); Mean Corpuscular Volume 89.3 fL (78.0-98.0); Mean Platelet Volume 9.8 fL (7.4-10.4); Platelet Count 156 10x3/uL (130-400); Red Blood Cell (RBC) Count 4.59 mill/uL (4.70-6.10)
[2024-04-29 06:04] LABS: Anion Gap 14 mmol/L (10-20); BUN (Urea Nitrogen) 12 mg/dL (8.4-25.7); Calc. Creatinine Clearance 76 mL/min (70-130); Carbon Dioxide 22 mmol/L (23-31); Chloride 105 mmol/L (98-107); Estimated GFR 86; Glucose 96 mg/dL (80-115); Potassium 3.5 mmol/L (3.5-5.1); Sodium 137 mmol/L (136-145)
[2024-04-29] MEDS ORDERED: Pantoprazole 40 MG VIAL IVP SCH (09:00)
[2024-04-29] MEDS ORDERED: PROPOFOL 40 ML ONE (09:33)
[2024-04-29] MEDS ORDERED: Lidocaine 2% PF 5 ML VIAL ONE (09:33)
[2024-04-29] MEDS ORDERED: PHENYLEPHRINE-NS 100 MCG/ML 10 ML SYRINGE ONE (10:05)
[2024-04-30 02:04] LABS: Campy jejuni + coli by PCR Negative (Negative); STEC Shiga Toxin 1+2 Negative (Negative); Salmonella spp. by PCR Negative (Negative); Shigella spp + EIEC by PCR Negative (Negative)
[2024-04-30 02:19] LABS: #Basophils Less than 0.03 10x3/uL (0.0-0.2); %Basophils 0.4 % (0.0-1.0); %Eosinophils 3.5 % (0.0-10.0); %Lymphocytes 17.1 % (21.0-51.0); %Monocytes 9.6 % (0.0-10.0); %Neutrophils 69.2 % (42.0-75.0); Hematocrit 37.2 % (42.0-52.0); Hemoglobin 12.4 g/dL (14.0-18.0); Mean Corpuscular HGB CONC 33.3 g/dL (32.0-36.0); Mean Corpuscular Hemoglobin 29.3 pg (27.0-31.0); Mean Corpuscular Volume 87.9 fL (78.0-98.0); Mean Platelet Volume 9.8 fL (7.4-10.4); Platelet Count 149 10x3/uL (130-400); Red Blood Cell (RBC) Count 4.23 mill/uL (4.70-6.10)
[2024-04-30 02:37] LABS: Anion Gap 10 mmol/L (10-20); BUN (Urea Nitrogen) 12 mg/dL (8.4-25.7); Calc. Creatinine Clearance 84 mL/min (70-130); Calcium 7.6 mg/dL (7.8-10.44); Carbon Dioxide 21 mmol/L (23-31); Chloride 107 mmol/L (98-107); Estimated GFR 97; Glucose 143 mg/dL (80-115); Potassium 3.2 mmol/L (3.5-5.1); Sodium 135 mmol/L (136-145)
[2024-04-30] MEDS: Pantoprazole DR 40 MG TAB PO SCH (10:13)
[2024-04-30 13:20] VITALS: BMI 27.5
[2024-04-30] MEDS: Ondansetron PF 4 MG/2 ML Vial IVP PRN (14:45)
[2024-04-30] MEDS: Apixaban 5 MG TAB PO SCH (21:35)
[2024-05-01 05:43] LABS: #Basophils Less than 0.03 10x3/uL (0.0-0.2); %Basophils 0.4 % (0.0-1.0); %Eosinophils 4.2 % (0.0-10.0); %Lymphocytes 14.1 % (21.0-51.0); %Monocytes 11.8 % (0.0-10.0); %Neutrophils 69.3 % (42.0-75.0); Hematocrit 36.7 % (42.0-52.0); Hemoglobin 12.4 g/dL (14.0-18.0); Mean Corpuscular HGB CONC 33.8 g/dL (32.0-36.0); Mean Corpuscular Hemoglobin 29.2 pg (27.0-31.0); Mean Corpuscular Volume 86.4 fL (78.0-98.0); Mean Platelet Volume 9.7 fL (7.4-10.4); Platelet Count 153 10x3/uL (130-400); RBC Distribution Width 15.9 % (11.5-14.5); Red Blood Cell (RBC) Count 4.25 mill/uL (4.70-6.10)
[2024-05-01 07:52] VITALS: BP 105/71; TEMP 98.4
[2024-05-01] MEDS: Potassium Chloride 20 MEQ TAB PO SCH (09:25)
[2024-05-01] MEDS: Cholecalciferol 1,000 UNITS (25 MCG) TAB PO SCH (09:25)
[2024-05-01] MEDS ORDERED: FLU (Fluarix Triv) TS24-25(6MOS UP)/PF 45 MCG/0.5 ML Syringe ONE (10:42)
[2024-05-01] MEDS: FLU (Fluarix Triv) TS24-25(6MOS UP)/PF 45 MCG/0.5 ML Syringe ONE (12:27)
== END 2024-05-01 12:45 | disposition home or self-care (01) | DRG 378 ==
LOC: ERS 02:33 → IMCU/EMU 06:55 → MSONC 04-30 12:15
PROVIDERS: ADMIT Student in an Organized Health Care Education/Training Program; ATTEND Internal Medicine
PROC: 0DJ08ZZ Inspection of Upper Intestinal Tract, Via Natural or Artificial Opening Endoscopic (ICD-10-PCS; principal; 2024-04-28)
PROC: 0DJD8ZZ Inspection of Lower Intestinal Tract, Via Natural or Artificial Opening Endoscopic (ICD-10-PCS; 2024-04-29)
DX: K92.2 Gastrointestinal hemorrhage, unspecified (principal); C64.9 Malignant neoplasm of unspecified kidney, except renal pelvis; I24.89 Other forms of acute ischemic heart disease; E55.9 Vitamin D deficiency, unspecified; E87.6 Hypokalemia; Z66 Do not resuscitate; Z79.899 Other long term (current) drug therapy; Z79.01 Long term (current) use of anticoagulants; I10 Essential (primary) hypertension; Z86.711 Personal history of pulmonary embolism; K52.9 Noninfective gastroenteritis and colitis, unspecified
CPT/HCPCS: 36415; 74177; 80048; 80053; 82306; 83605; 83690; 83880; 84134; 84484; 85025; 85610; 86141; 86850; 86900; 86901; 87040; 87324; 87449; 87505; 90656; 93306; 96374; J2405; J2470; J2704; J7120; Q9967

== ENCOUNTER 2024-06-29 08:14 | Outpatient (CLI) | payer BC | END 2024-06-29 08:15 | disposition home or self-care (01) | LOC: SCSMRI 08:14 | PROVIDERS: ATTEND Radiology Radiation Oncology | DX: C79.31 Secondary malignant neoplasm of brain (principal); R90.82 White matter disease, unspecified; R60.9 Edema, unspecified | CPT/HCPCS: 36415; 70553; 76376; 82565 ==